=== PATIENT | female | born 1995 | race Two or more races ===

== ENCOUNTER 2025-02-04 09:20 | Emergency (ER) | payer OTHER ==
[~2025-02-04] VITALS: Ht 149.9 cm; Wt 53.5 kg
[2025-02-04] MEDS ORDERED: KETOROLAC TROMETHAMINE 60 MG VIAL IM ONE (11:00)
[2025-02-04 11:46] LABS: HEMOGLOBIN 13.5 g/dL (12.0-15.00); MEAN CELL VOLUME 96.8 fL (80.00-100.00); MEAN CORPUSCULAR HEMOGLOBIN 32.7 pg (27.00-32.0); MEAN CORPUSCULAR HGB CONC 33.8 g/dl (32.0-36.0); PLATELET COUNT 235 K/uL (150-450); RED BLOOD COUNT 4.13 M/uL (4.00-6.00); RED CELL DISTRIBUTION WIDTH 12.3 % (11.5-14.5)
[2025-02-04 11:57] LABS: CREATININE SERUM 0.6 mg/dL (0.55-1.02); GFR 119.92; POTASSIUM 3.58 mEq/L (3.5-5.1)
== END 2025-02-04 18:50 | disposition home or self-care (01) ==
LOC: ER 09:22
PROVIDERS: General Practice
DX: S92.221A Displaced fracture of lateral cuneiform of right foot, initial encounter for closed fracture (principal); S92.224A Nondisplaced fracture of lateral cuneiform of right foot, initial encounter for closed fracture; W10.9XXA Fall (on) (from) unspecified stairs and steps, initial encounter; Y93.89 Activity, other specified; Y92.89 Other specified places as the place of occurrence of the external cause; Y99.9 Unspecified external cause status; J00 Acute nasopharyngitis [common cold]; Z20.822 Contact with and (suspected) exposure to COVID-19; Z91.013 Allergy to seafood